=== PATIENT | female | born 1980 | race African-American/Black ===

== ENCOUNTER 2023-08-17 10:37 | Outpatient (CLI) | payer BC, SELFPAY ==
--- NOTE | ~2023-08-17 | MR_ITS ---
MRI of the left knee Clinical history: Pain Technique: Coronal proton density and proton density-weighted images, sagittal proton-density and T2 fat-sat images, and axial proton-density fat-saturated images were acquired. Findings: Anterior and posterior cruciate ligaments are intact. Medial collateral ligament and the la teral collateral ligament complex are intact. Popliteus tendon is intact. There is complex tearing of the posterior horn of the medial meniscus, which is probably extensively macerated, with tear possibly extending just into the body segment. No lateral meniscal tear evident. There is probable subchondral insufficiency fracture at the medial tibial plateau region with surroun ding amorphous marrow edema. There is extensive high-grade chondromalacia patella and patchy high-gra de chondromalacia the femoral trochlea. There is diffuse high-grade chondromalacia on both sides of t he medial compartment. There is moderate chondromalacia in the lateral compartment. Tricompartmental osteophytes are present. Extensor mechanism is intact. Small joint effusion present. No Mejia's cyst. Impression: Complex tearing of the posterior horn of the medial meniscus, possibly by 7, as detailed above. Probable subchondral sufficiency fracture the medial tibial plateau with surrounding marrow edema. Advanced tricompartmental degenerative change, as detailed above. Small joint effusion. Reviewed, dictated and finalized at location . Impression: Complex tearing of the posterior horn of the medial meniscus, possibly by 7, as detailed above. Probable subchondral sufficiency fracture the medial tibial plateau with surrou nding marrow edema. Advanced tricompartmental degenerative change, as detailed above. Small joint effusion.
== END 2023-08-17 10:38 | disposition home or self-care (01) ==
LOC: ANHIMG 10:50
PROVIDERS: Visit Provider Physician Assistant Surgical
DX: S83.232A Complex tear of medial meniscus, current injury, left knee, initial encounter (principal); M17.12 Unilateral primary osteoarthritis, left knee; M25.462 Effusion, left knee; X58.XXXA Exposure to other specified factors, initial encounter
CPT/HCPCS: 73721